=== PATIENT | female | born 2000 | race African-American/Black ===

== ENCOUNTER 2020-12-21 13:01 | Emergency (ER) | payer SELFPAY ==
[~2020-12-21] VITALS: Ht 167.6 cm; Wt 91.0 kg
[2020-12-21] MEDS ORDERED: IBUPROFEN 600MG TABLET PO ONE (14:00)
[2020-12-21] MEDS ORDERED: IBUP-2029 MT (15:33)
[2020-12-21] MEDS ORDERED: CYCL10TA7 MT (15:33)
[2020-12-21 15:53] VITALS: BP 121/83
== END 2020-12-21 15:54 | disposition home or self-care (01) ==
LOC: ER 13:01
DX: S09.8XXA Other specified injuries of head, initial encounter (principal); S00.83XA Contusion of other part of head, initial encounter; V43.52XA Car driver injured in collision with other type car in traffic accident, initial encounter; Y93.89 Activity, other specified; Y92.488 Other paved roadways as the place of occurrence of the external cause
CPT/HCPCS: 70486; 71045; 81025; 99284